=== PATIENT | female | born 1955 | race Caucasian/White ===

== ENCOUNTER 2019-05-31 13:10 | Outpatient (CLI) | payer BC, SELFPAY ==
[2019-05-31 13:22] LABS: Basophils Absolute Auto 0.1 K/mm3 (0.0-0.1); Basophils Percent Auto 0.4 % (0.2-1.2); Eosinophils Absolute Auto 0.8 K/mm3 (0-0.3); Hematocrit 41.6 % (37.0-47.0); Hemoglobin 13.8 g/dL (12.0-15.0); Immature Granulocyte Absolute 0.12 K/mm3 (0.00-0.031); Immature Granulocyte Percent A 0.6 % (0-0.5); Lymphocytes Absolute Auto 3.25 K/mm3 (0.9-3.2); Mean Corpuscular HGB Conc 33.2 g/dl (32-36); Mean Corpuscular Hemoglobin 32.1 pg (26-34); Mean Corpuscular Volume 96.7 fl (80-100); Mean Platelet Volume 10.3 fl (7.4-10.4); Monocytes Percent Auto 5.4 % (2.6-8.5); Neutrophils Absolute Auto 13.9 K/mm3 (1.3-6.7); Neutrophils Percent Auto 72.6 % (45.5-73.1); Platelet Count Result 444 k/mm3 (150-375); Red Cell Distribution Width 13.1 % (11.5-14.5); White Blood Count 19.2 K/mm3 (4.5-10.0)
[2019-05-31 16:47] LABS: Alanine Aminotransferase 14 U/L (4-35); Albumin Level 3.6 g/dL (3.5-5.1); Alkaline Phosphatase 95 U/L (38-126); Aspartate Amino Transferase 19 U/L (14-36); Bilirubin,Total 0.3 mg/dL (0.2-1.3); Blood Urea Nitrogen 22 mg/dL (7-17); Calcium 9.6 mg/dL (8.4-10.2); Carbon Dioxide 23 mmol/L (22-30); Chloride 101 mmol/L (98-107); Estimated Glomerular Filt Rate > 60; Glucose 110 mg/dL (65-105); Potassium 4.1 mmol/L (3.4-5.0); Sodium 135 mmol/L (137-145)
== END 2019-05-31 13:11 | disposition home or self-care (01) ==
LOC: ANHLAB 13:13
PROVIDERS: PCP Internal Medicine; Visit Provider Internal Medicine Hematology & Oncology
DX: D72.829 Elevated white blood cell count, unspecified (principal)
CPT/HCPCS: 36415; 80053; 85025

== ENCOUNTER 2019-09-12 12:07 | Outpatient (CLI) | payer BC, SELFPAY ==
[2019-09-12 12:20] LABS: Basophils Absolute Auto 0.1 K/mm3 (0.0-0.1); Basophils Percent Auto 0.8 % (0.2-1.2); Eosinophils Absolute Auto 0.5 K/mm3 (0-0.3); Eosinophils Percent Auto 3.1 % (0-4.4); Hematocrit 43.6 % (37.0-47.0); Hemoglobin 14.2 g/dL (12.0-15.0); Immature Granulocyte Absolute 0.08 K/mm3 (0.00-0.031); Immature Granulocyte Percent A 0.5 % (0-0.5); Lymphocytes Absolute Auto 3.44 K/mm3 (0.9-3.2); Lymphocytes Percent Auto 22.8 % (18.3-44.2); Mean Corpuscular HGB Conc 32.6 g/dl (32-36); Mean Corpuscular Hemoglobin 32.2 pg (26-34); Mean Corpuscular Volume 98.9 fl (80-100); Mean Platelet Volume 10.4 fl (7.4-10.4); Monocytes Absolute Auto 1.1 K/mm3 (0.1-0.6); Neutrophils Absolute Auto 9.9 K/mm3 (1.3-6.7); Neutrophils Percent Auto 65.8 % (45.5-73.1); Platelet Count Result 453 k/mm3 (150-375); Red Blood Count 4.41 M/mm3 (4.2-5.4); Red Cell Distribution Width 12.4 % (11.5-14.5); White Blood Count 15.1 K/mm3 (4.5-10.0)
[2019-09-12 12:23] LABS: Blood Urea Nitrogen 13 mg/dL (8-26); Carbon Dioxide 22 mmol/L (22-30); Chloride 102 mmol/L (98-109); Estimated Glomerular Filt Rate > 60; Glucose 126 mg/dL (70-105); Potassium 3.4 mmol/L (3.5-4.9); Sodium 138 mmol/L (138-146)
== END 2019-09-12 12:08 | disposition home or self-care (01) ==
LOC: ANHLAB 12:10
PROVIDERS: PCP Internal Medicine; Visit Provider Internal Medicine Hematology & Oncology
DX: D72.829 Elevated white blood cell count, unspecified (principal)
CPT/HCPCS: 36415; 80048; 85025

== ENCOUNTER 2020-01-27 10:33 | Outpatient (CLI) | payer BC, SELFPAY ==
--- NOTE | ~2020-01-27 | CT_ITS ---
EXAMINATION: CT brain wo con DATE: 01/27/2020 11:34 INDICATION: Migraine headache. TECHNIQUE: Computed tomography (CT) of the head was performed without intravenous contrast. The mA wa s adjusted according to patient size. Iterative reconstruction technique was employed. The dose-lengt h product was 529.67 mGy-cm. COMPARISON: Head CT/22/03, brain MRI 07/25/2011 FINDINGS: There is no intracranial hemorrhage, acute infarction, or abnormal intracranial mass lesion . The ventricles are normal in size. There is cavum septum callosum and vergae. The paranasal sinuses are clear. The mastoid air cells are normal. 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 IMPRESSION: 1. Normal brain. Reviewed, dictated and finalized at location A. IMPRESSION: 1. Normal brain.
== END 2020-01-27 10:34 | disposition home or self-care (01) ==
PROVIDERS: PCP Physician Assistant; Visit Provider Physician Assistant
DX: G43.909 Migraine, unspecified, not intractable, without status migrainosus (principal)
CPT/HCPCS: 70450

== ENCOUNTER 2020-02-09 15:51 | Outpatient (CLI) | payer BC, SELFPAY ==
[2020-02-09 16:35] LABS: Hematocrit 42.8 % (37.0-47.0); Hemoglobin 14.3 g/dL (12.0-15.0); Mean Corpuscular HGB Conc 33.4 g/dl (32-36); Mean Corpuscular Hemoglobin 33.1 pg (26-34); Mean Corpuscular Volume 99.1 fl (80-100); Mean Platelet Volume 10.1 fl (7.4-10.4); Platelet Count Result 505 k/mm3 (150-375); Red Blood Count 4.32 M/mm3 (4.2-5.4); Red Cell Distribution Width 12.7 % (11.5-14.5); White Blood Count 13.6 K/mm3 (4.5-10.0)
[2020-02-09 17:00] LABS: Free T4 Free Thyroxine 1.77 ng/mL (0.78-2.19)
[2020-02-09 19:00] LABS: Vitamin D 25 Hydroxy < 12.8 ng/mL
[2020-02-09 20:24] LABS: Folic Acid 9.6 ng/mL (2.76->20)
== END 2020-02-09 15:52 | disposition home or self-care (01) ==
LOC: ANHLAB 15:53
PROVIDERS: PCP Physician Assistant; Visit Provider Physician Assistant
DX: E03.9 Hypothyroidism, unspecified (principal); D72.829 Elevated white blood cell count, unspecified; R53.83 Other fatigue; E55.9 Vitamin D deficiency, unspecified
CPT/HCPCS: 36415; 82306; 82607; 82746; 84439; 84443; 85027; 86038

== ENCOUNTER 2021-03-11 08:06 | Outpatient (CLI) | payer BC, SELFPAY ==
[2021-03-11 08:33] LABS: Hematocrit 43.8 % (37.0-47.0); Hemoglobin 14.7 g/dL (12.0-15.0); Mean Corpuscular HGB Conc 33.6 g/dl (32-36); Mean Corpuscular Hemoglobin 32.2 pg (26-34); Mean Corpuscular Volume 96.1 fl (80-100); Platelet Count Result 477 k/mm3 (150-375); Red Blood Count 4.56 M/mm3 (4.2-5.4); Red Cell Distribution Width 12.6 % (11.5-14.5)
[2021-03-11 08:45] LABS: Alanine Aminotransferase 11 U/L (4-35); Albumin Level 3.9 g/dL (3.5-5.1); Alkaline Phosphatase 104 U/L (38-126); Anion Gap 2 mmol/L (8-16); Aspartate Amino Transferase 20 U/L (14-36); Bilirubin,Total 0.4 mg/dL (0.2-1.3); Blood Urea Nitrogen 17 mg/dL (7-17); Calcium 9.6 mg/dL (8.4-10.2); Carbon Dioxide 29 mmol/L (22-30); Chloride 104 mmol/L (98-107); Cholesterol 234 mg/dL (0-200); Estimated Glomerular Filt Rate > 60; Glucose 104 mg/dL (65-110); HDL Direct 49 mg/dL; Sodium 135 mmol/L (137-145); Triglycerides 225 mg/dL (<150)
[2021-03-11 08:56] LABS: LDL Cholesterol Direct 132 mg/dL
[2021-03-11 09:52] LABS: Folic Acid 6.4 ng/mL (2.76->20); Vitamin B12 > 1000.0 pg/mL (239-931)
[2021-03-11 13:44] LABS: Free T4 Free Thyroxine 1.24 ng/mL (0.78-2.19); Vitamin D 25 Hydroxy 20.7 ng/mL
== END 2021-03-11 08:07 | disposition home or self-care (01) ==
LOC: ANHLAB 08:09
PROVIDERS: PCP Internal Medicine; Visit Provider Physician Assistant
DX: E78.00 Pure hypercholesterolemia, unspecified (principal); E55.9 Vitamin D deficiency, unspecified; E03.9 Hypothyroidism, unspecified; R53.83 Other fatigue
CPT/HCPCS: 36415; 80053; 80061; 82306; 82607; 82746; 84439; 84443; 85027

== ENCOUNTER 2021-12-05 14:39 | Outpatient (CLI) | payer BC, SELFPAY ==
[2021-12-05 15:06] LABS: Basophils Absolute Auto 0.1 K/mm3 (0.0-0.1); Basophils Percent Auto 0.7 % (0.2-1.2); Eosinophils Absolute Auto 0.3 K/mm3 (0-0.3); Eosinophils Percent Auto 2.2 % (0-4.4); Hematocrit 45.1 % (37.0-47.0); Hemoglobin 14.7 g/dL (12.0-15.0); Immature Granulocyte Absolute 0.08 K/mm3 (0.00-0.031); Immature Granulocyte Percent A 0.5 % (0-0.5); Lymphocytes Absolute Auto 3.47 K/mm3 (0.9-3.2); Lymphocytes Percent Auto 23.4 % (18.3-44.2); Mean Corpuscular HGB Conc 32.6 g/dl (32-36); Mean Corpuscular Hemoglobin 31.4 pg (26-34); Mean Corpuscular Volume 96.4 fl (80-100); Mean Platelet Volume 10.4 fl (7.4-10.4); Monocytes Percent Auto 6.9 % (2.6-8.5); Neutrophils Absolute Auto 9.8 K/mm3 (1.3-6.7); Neutrophils Percent Auto 66.3 % (45.5-73.1); Platelet Count Result 461 k/mm3 (150-375); Red Blood Count 4.68 M/mm3 (4.2-5.4); Red Cell Distribution Width 13.1 % (11.5-14.5); White Blood Count 14.8 K/mm3 (4.5-10.0)
[2021-12-05 15:15] LABS: CRP < 0.5 mg/dL (<1.0)
[2021-12-05 15:29] LABS: Erythrocyte Sedimentation Rate 6 mm/hr (0-20)
[2021-12-13 16:17] LABS: CALR Exon 9 Mutation Not Detected (Not Detected); CSF3R Exon 14/17 Mutation Not Detected (Not Detected); JAK2 Exon 12 Mutation Not Detected (Not Detected); JAK2 V617F Mutation Not Detected (Not Detected); MPL Exon 10 Mutation Not Detected (Not Detected)
== END 2021-12-05 14:40 | disposition home or self-care (01) ==
LOC: ANHLAB 14:42
PROVIDERS: PCP Nurse Practitioner Adult Health; Visit Provider Internal Medicine Hematology & Oncology
DX: D75.838 Other thrombocytosis (principal)
CPT/HCPCS: 36415; 81219; 81270; 81402; 81403; 81479; 85025; 85652; 86140

== ENCOUNTER 2022-04-22 12:05 | Outpatient (CLI) | payer BC, SELFPAY ==
[2022-04-22 12:33] LABS: Basophils Absolute Auto 0.1 K/mm3 (0.0-0.1); Basophils Percent Auto 0.9 % (0.2-1.2); Eosinophils Absolute Auto 0.5 K/mm3 (0-0.3); Eosinophils Percent Auto 3.4 % (0-4.4); Hematocrit 45.3 % (37.0-47.0); Hemoglobin 14.7 g/dL (12.0-15.0); Immature Granulocyte Absolute 0.12 K/mm3 (0.00-0.031); Immature Granulocyte Percent A 0.9 % (0-0.5); Lymphocytes Absolute Auto 3.57 K/mm3 (0.9-3.2); Lymphocytes Percent Auto 26.1 % (18.3-44.2); Mean Corpuscular HGB Conc 32.5 g/dl (32-36); Mean Corpuscular Hemoglobin 31.7 pg (26-34); Mean Corpuscular Volume 97.8 fl (80-100); Mean Platelet Volume 10.3 fl (7.4-10.4); Monocytes Absolute Auto 1.2 K/mm3 (0.1-0.6); Monocytes Percent Auto 8.5 % (2.6-8.5); Neutrophils Absolute Auto 8.3 K/mm3 (1.3-6.7); Neutrophils Percent Auto 60.2 % (45.5-73.1); Platelet Count Result 484 k/mm3 (150-375); Red Blood Count 4.63 M/mm3 (4.2-5.4); White Blood Count 13.7 K/mm3 (4.5-10.0)
[2022-04-22 12:38] LABS: Blood Urea Nitrogen 15 mg/dL (8-26); Carbon Dioxide 30 mmol/L (22-30); Chloride 103 mmol/L (98-109); Estimated Glomerular Filt Rate > 60; Glucose 100 mg/dL (70-105); Ionized Calcium (POC) 1.21 mmol/L (1.11-1.31); Potassium 4.1 mmol/L (3.5-4.9); Sodium 140 mmol/L (138-146)
== END 2022-04-22 12:06 | disposition home or self-care (01) ==
LOC: ANHLAB 12:07
PROVIDERS: PCP Emergency Medicine; Visit Provider Internal Medicine Hematology & Oncology
DX: D75.838 Other thrombocytosis (principal)
CPT/HCPCS: 36415; 80047; 85025

== ENCOUNTER 2022-07-03 14:25 | Outpatient (CLI) | payer MEDICARE, BC, SELFPAY ==
[2022-07-03 19:04] LABS: Free T4 Free Thyroxine 1.92 ng/mL (0.78-2.19); Vitamin D 25 Hydroxy 37.8 ng/mL
== END 2022-07-03 14:26 | disposition home or self-care (01) ==
LOC: ANHGOSHLAB 14:26
PROVIDERS: PCP Emergency Medicine; Visit Provider Emergency Medicine
DX: E03.9 Hypothyroidism, unspecified (principal); E55.9 Vitamin D deficiency, unspecified
CPT/HCPCS: 36415; 82306; 84439; 84443

== ENCOUNTER 2022-09-29 19:27 | Outpatient (NON) | payer BC, SELFPAY | END 2022-09-29 19:28 | disposition home or self-care (01) | PROVIDERS: PCP Emergency Medicine; Visit Provider Nurse Practitioner Family | DX: R39.9 Unspecified symptoms and signs involving the genitourinary system (principal) | CPT/HCPCS: 87086; 87088 ==

== ENCOUNTER 2022-09-30 08:58 | Outpatient (CLI) | payer BC, SELFPAY ==
[2022-09-30 17:01] LABS: Basophils Absolute Auto 0.1 K/mm3 (0.0-0.1); Basophils Percent Auto 0.9 % (0.2-1.2); Eosinophils Absolute Auto 0.5 K/mm3 (0-0.3); Eosinophils Percent Auto 3.7 % (0-4.4); Immature Granulocyte Percent A 0.7 % (0-0.5); Lymphocytes Absolute Auto 2.73 K/mm3 (0.9-3.2); Lymphocytes Percent Auto 20.3 % (18.3-44.2); Mean Corpuscular HGB Conc 31.8 g/dl (32-36); Mean Corpuscular Hemoglobin 31.5 pg (26-34); Mean Corpuscular Volume 98.9 fl (80-100); Mean Platelet Volume 10.4 fl (7.4-10.4); Monocytes Absolute Auto 1.2 K/mm3 (0.1-0.6); Monocytes Percent Auto 8.8 % (2.6-8.5); Neutrophils Absolute Auto 8.8 K/mm3 (1.3-6.7); Neutrophils Percent Auto 65.6 % (45.5-73.1); Platelet Count Result 525 k/mm3 (150-375); Red Blood Count 4.45 M/mm3 (4.2-5.4); Red Cell Distribution Width 12.5 % (11.5-14.5); White Blood Count 13.4 K/mm3 (4.5-10.0)
[2022-09-30 18:50] LABS: Alanine Aminotransferase 15 U/L (6-35); Albumin Level 3.5 g/dL (3.5-5.1); Alkaline Phosphatase 114 U/L (38-126); Amylase 55 U/L (30-110); Anion Gap 7 mmol/L (8-16); Aspartate Amino Transferase 24 U/L (14-36); Bilirubin,Total 0.3 mg/dL (0.2-1.3); Blood Urea Nitrogen 12 mg/dL (7-17); Calcium 9.1 mg/dL (8.4-10.2); Carbon Dioxide 28 mmol/L (22-30); Chloride 102 mmol/L (98-107); Estimated Glomerular Filt Rate > 60; Glucose 88 mg/dL (65-110); Lipase 78 U/L (23-300); Potassium 3.6 mmol/L (3.4-5.0); Sodium 137 mmol/L (137-145)
== END 2022-09-30 08:59 | disposition home or self-care (01) ==
LOC: ANHGOSHLAB 08:59
PROVIDERS: PCP Emergency Medicine; Visit Provider Nurse Practitioner Family
DX: R10.9 Unspecified abdominal pain (principal); R19.7 Diarrhea, unspecified
CPT/HCPCS: 36415; 80053; 82150; 83690; 85025

== ENCOUNTER 2022-10-03 13:53 | Outpatient (CLI) | payer BC, SELFPAY ==
--- NOTE | ~2022-10-03 | CT_ITS ---
EXAMINATION: CT abdomen pelvis w con DATE: 10/03/2022 14:20 INDICATION: Diarrhea. Lower abdominal pain. TECHNIQUE: Computed tomography (CT) of the abdomen and pelvis was performed with 100 mL Omnipaque-350 intravenous contrast. Automated exposure control and iterative reconstruction technique were employe d. The dose-length product was 940.44 mGy-cm. COMPARISON: CT abdomen dated 10/26/2004 FINDINGS: Bilateral breast implants with peripheral capsular calcifications. Visualized mid to lower lungs are clear with no pulmonary nodules, pulmonary edema, pneumonia or pleural effusion. Heart size is normal . No pericardial effusion. Mild dilation of the common bile duct which measures up to 9 mm which is w ithin normal limits post cholecystectomy with surgical clips the gallbladder fossa. Liver is normal w ith no intrahepatic biliary ductal dilation. A few calcific lesions in the spleen consistent with old granulomatous disease. Pancreas, bilateral adrenal glands and kidneys are normal. Fluid throughout t he colon consistent with provided history of diarrhea. There is moderate diverticulosis along the rose marie cending and sigmoid colon. Mild inflammatory thickening surrounding a diverticulum along the mid sigm oid colon consistent with diverticulitis. Minimal likely reactive free fluid in the deep pelvis. No e xtraluminal gas or abscess. The appendix is not visualized. No pericecal inflammatory change to sugge st acute appendicitis. No bowel obstruction. Bladder is normal. The uterus is not identified and has likely been surgically resected. No pathologically enlarged abdominal or pelvic lymphadenopathy. Ban re lumbar spondylosis. IMPRESSION: 1. Radiographically uncomplicated sigmoid diverticulitis. Reviewed, dictated and finalized at location A.
== END 2022-10-03 13:54 | disposition home or self-care (01) ==
PROVIDERS: PCP Emergency Medicine; Visit Provider Nurse Practitioner Family
DX: R19.7 Diarrhea, unspecified (principal); R10.9 Unspecified abdominal pain; K57.32 Diverticulitis of large intestine without perforation or abscess without bleeding
CPT/HCPCS: 74177; Q9967

== ENCOUNTER 2022-10-21 13:39 | Outpatient (CLI) | payer BC, SELFPAY ==
[2022-10-21 13:49] LABS: Basophils Absolute Auto 0.1 K/mm3 (0.0-0.1); Basophils Percent Auto 0.9 % (0.2-1.2); Eosinophils Absolute Auto 0.6 K/mm3 (0-0.3); Eosinophils Percent Auto 4.6 % (0-4.4); Hematocrit 43.7 % (37.0-47.0); Immature Granulocyte Absolute 0.09 K/mm3 (0.00-0.031); Immature Granulocyte Percent A 0.7 % (0-0.5); Lymphocytes Absolute Auto 3.99 K/mm3 (0.9-3.2); Lymphocytes Percent Auto 30.5 % (18.3-44.2); Mean Corpuscular Hemoglobin 31.7 pg (26-34); Mean Corpuscular Volume 98.9 fl (80-100); Mean Platelet Volume 10.2 fl (7.4-10.4); Monocytes Absolute Auto 1.1 K/mm3 (0.1-0.6); Monocytes Percent Auto 8.1 % (2.6-8.5); Neutrophils Absolute Auto 7.2 K/mm3 (1.3-6.7); Neutrophils Percent Auto 55.2 % (45.5-73.1); Platelet Count Result 445 k/mm3 (150-375); Red Blood Count 4.42 M/mm3 (4.2-5.4); Red Cell Distribution Width 12.8 % (11.5-14.5); White Blood Count 13.1 K/mm3 (4.5-10.0)
[2022-10-21 13:55] LABS: Blood Urea Nitrogen 18 mg/dL (8-26); Carbon Dioxide 29 mmol/L (22-30); Chloride 102 mmol/L (98-109); Estimated Glomerular Filt Rate > 60; Glucose 100 mg/dL (70-105); Potassium 3.9 mmol/L (3.5-4.9); Sodium 141 mmol/L (138-146)
[2022-10-21 16:38] LABS: Alanine Aminotransferase 15 U/L (6-35); Albumin Level 3.8 g/dL (3.5-5.1); Alkaline Phosphatase 99 U/L (38-126); Anion Gap 3 mmol/L (8-16); Aspartate Amino Transferase 21 U/L (14-36); Bilirubin,Total 0.3 mg/dL (0.2-1.3); Blood Urea Nitrogen 18 mg/dL (7-17); Calcium 9.3 mg/dL (8.4-10.2); Carbon Dioxide 32 mmol/L (22-30); Chloride 104 mmol/L (98-107); Estimated Glomerular Filt Rate > 60; Glucose 101 mg/dL (65-110); Potassium 3.9 mmol/L (3.4-5.0); Sodium 139 mmol/L (137-145)
== END 2022-10-21 13:40 | disposition home or self-care (01) ==
LOC: ANHLAB 13:40
PROVIDERS: PCP Emergency Medicine; Visit Provider Internal Medicine Hematology & Oncology
DX: D75.838 Other thrombocytosis (principal)
CPT/HCPCS: 36415; 80047; 80053; 85025

== ENCOUNTER 2022-11-27 14:02 | Outpatient (CLI) | payer BC, SELFPAY ==
[2022-11-27 14:45] LABS: Hematocrit 43.3 % (37.0-47.0); Hemoglobin 13.8 g/dL (12.0-15.0); Mean Corpuscular HGB Conc 31.9 g/dl (32-36); Mean Corpuscular Hemoglobin 31.4 pg (26-34); Mean Corpuscular Volume 98.6 fl (80-100); Mean Platelet Volume 10.7 fl (7.4-10.4); Platelet Count Result 458 k/mm3 (150-375); Red Blood Count 4.39 M/mm3 (4.2-5.4); Red Cell Distribution Width 12.6 % (11.5-14.5); White Blood Count 14.8 K/mm3 (4.5-10.0)
[2022-11-27 14:55] LABS: Alanine Aminotransferase 14 U/L (6-35); Albumin Level 3.9 g/dL (3.5-5.1); Alkaline Phosphatase 87 U/L (38-126); Anion Gap 3 mmol/L (8-16); Aspartate Amino Transferase 19 U/L (14-36); Bilirubin,Total 0.3 mg/dL (0.2-1.3); Blood Urea Nitrogen 12 mg/dL (7-17); CRP < 0.5 mg/dL (<1.0); Calcium 9.1 mg/dL (8.4-10.2); Carbon Dioxide 29 mmol/L (22-30); Chloride 104 mmol/L (98-107); Estimated Glomerular Filt Rate > 60; Glucose 90 mg/dL (65-110); Potassium 3.9 mmol/L (3.4-5.0); Sodium 136 mmol/L (137-145)
[2022-11-27 15:23] LABS: Thyroid Stimulating Hormone 0.243 uIU/mL (0.465-4.680)
[2022-11-27 15:29] LABS: Erythrocyte Sedimentation Rate 12 mm/hr (0-20)
[2022-12-02 19:39] LABS: Immunoglobulin A 327 mg/dL (70-320); TTG IGA AB <1.0 U/mL (<15.0)
== END 2022-11-27 14:03 | disposition home or self-care (01) ==
LOC: ANHLAB 14:05
PROVIDERS: PCP Emergency Medicine; Visit Provider Nurse Practitioner Family
DX: R10.9 Unspecified abdominal pain (principal); R11.2 Nausea with vomiting, unspecified; R19.7 Diarrhea, unspecified
CPT/HCPCS: 36415; 80053; 82784; 84443; 85027; 85652; 86140; 86364

== ENCOUNTER 2022-12-18 01:43 | Day surgery (SDC) | payer BC, SELFPAY ==
[2022-12-03 14:52] VITALS: BMI 31.8
--- NOTE | 2022-12-17 17:09 | PM.HPGS ---
History of Present Illness History of Present Illness Consent: Risks, benefits, and alternatives have been discussed and questions answered. Patient agrees to proceed with procedure. Chief complaint: abdominal pain,Mixed irritable bowel syndrome, Narrative: Laine Chowdary is a 67 year old female with hx of constipation, vaginal and rectal prolapse with surgical repair in 2019 is referred to office per Dr. Mejia for evaluation alternating diarrhea, bloating and gas. Patient reports symptoms have been going on since 2019 after she underwent surgery for vaginal and rectal prolapse.? Since her surgery she has been passing hard stool balls followed by large amounts of diarrhea. States often she will have to sit on the toilet and either lean forward or rotate in circles to get the stool to pass.? she reports tenesmus with multiple bowel movements per day.? she reports associated lower abdominal cramping and bloating, this is constant and never seems to improve. She also reports early satiety and can only eat about a half a sandwich at a time since 2019.? this past September she developed left lower quadrant pain this prompted her to follow up in the ER.? CT scan did revealed acute sigmoid diverticulitis.? she believes the diverticulitis was caused by severe constipation that she had several days prior. she denies any previous episodes of diverticulitis.? She was treated with 2 rounds of antibiotic with improvement of her left lower quadrant pain. Since September she has been taking MiraLax daily and reports multiple soft stools per day with large amounts of bloating and gas. every time she eats she can feel the food moving through her intestines a going down until in the lower abdomen it feels heavy and uncomfortable. She has constant pain in the lower abdomen in fact. She states it is all dates to when she had her pelvic surgery 4 years ago. Review of Systems Review of Systems: All systems reviewed & are unremarkable except as noted in HPI and below PMFSH Past Medical History Medical History Essential (primary) hypertension Gas bloat syndrome Gastro-esophageal reflux disease without esophagitis Irritable bowel syndrome with constipation and diarrhea Migraine Nausea and vomiting Rectal prolapse Surgical History Surgical History H/O of rectopexy H/O right wrist surgery History of cholecystectomy History of sacrocolpopexy S/P breast implant, left S/P breast implant, right S/P hysterectomy Family History Family History Mother Family history of osteoporosis Hypertension Family history of arthritis Family history of Alzheimer's disease Family history of coronary artery disease Family history of heart disease in male family member before age 55 Family history of hypercholesterolemia Father Family history of arthritis Family history of diabetes mellitus in first degree relative Family history of lung disease Family history of emphysema Diabetes mellitus Family history of lung cancer Social History Social History Smoking packs per day: 0.25 Smoking cigarettes per day: 5.0 Years smoked: 20 Smoking pack-years: 5.00 Smoking status: Current every day smoker Tobacco type: cigarettes Second hand tobacco smoke exposure: No Smoking end date: 04/06/03 Alcohol intake: never Substance use: never Substance use type: does not use Lack of Transportation: No Lack of Food: Never True Current Housing: I Have Housing Concerned About Future Housing: No Difficulty Paying Gas/Electric Bills: No Difficulty Paying for Meds: No Currently Unemployed: No Difficulty w/ Childcare or Family Care: No Living arrangements: with family Spiritual care concerns: No Meds Home Medications and Allergies Home Medi
[2022-12-18 11:53] VITALS: BP 144/64; PULSE 84; RESP 18; TEMP 36.4; O2SAT 99
[2022-12-18] MEDS: LACTATED RINGERS 1,000 ML 150 ML IV CONT (12:07)
--- NOTE | 2022-12-18 12:17 | WPDANESEPPF ---
Anes - Initial Pre Proc Eval Procedure: Operation Date: 12/18/22 13:00 Proposed Procedures p Esophagogastroduodenoscopy & Colonoscopy - Henrry Valdez MD Date/Time: 12/18/22 12:17 Surgeon: Henrry Valdez MD Pre Op Diagnosis: abdominal pain,Mixed irritable bowel syndrome, Patient Data Age: 67 Gender: F Height: 1.63 m Weight: 79.9 kg Last Vital Signs Temp 36.4 C 12/18/22 11:53 Pulse 84 12/18/22 11:53 Resp 18 12/18/22 11:53 BP 144/64 H 12/18/22 11:53 Pulse Ox 99 12/18/22 11:53 O2 Del Method Room Air 12/18/22 11:53 Allergies Allergy/AdvReac Type Severity Reaction Status Date / Time topiramate Allergy Severe Hypertensio Verified 12/18/22 11:50 n lisinopril Allergy Unknown Angio Adema Verified 12/18/22 11:50 Home Medications Medication Instructions Recorded Confirmed Type [id number]-mhugyifbtsnzo-mstfkooj 250 1 tablet PO Q4-6H PRN Migraine 06/14/19 12/18/22 History mg-250 mg-65 mg tablet (Excedrin Headache Migraine) hydrochlorothiazide 12.5 mg tablet 12.5 mg PO DAILY #90 tabs 07/22/21 12/18/22 Rx ergocalciferol (vitamin D2) 1,250 1,250 mcg PO WEEKLY #12 caps 08/08/21 12/18/22 Rx mcg (50,000 unit) capsule metoprolol tartrate 25 mg tablet 25 mg PO DAILY #90 tabs 10/22/21 12/18/22 Rx amlodipine 5 mg tablet 5 mg PO DAILY 07/29/22 12/18/22 History galcanezumab-gnlm 120 mg/mL 120 mg subcut MONTHLY 07/29/22 12/18/22 History subcutaneous pen injector (Emgality Pen) levothyroxine 137 mcg tablet 137 mcg PO DAILY #90 tabs 11/17/22 12/18/22 Rx omeprazole 40 mg capsule,delayed 40 mg PO DAILY 1 month #30 caps 11/27/22 12/18/22 Rx release triamcinolone acetonide 55 mcg 2 spray intranasal PRN PRN Nasal 08/30/23 09/14/23 History nasal spray aerosol (Nasacort Congestion Allergy) Patient hx anesthesia problems: none Family hx anesthesia problems: none Results Review: All pre-operative results and documents have been reviewed as part of the pre-operative evaluation. [facility] Past Medical History Medical History Essential (primary) hypertension Gas bloat syndrome Gastro-esophageal reflux disease without esophagitis Irritable bowel syndrome with constipation and diarrhea Migraine Nausea and vomiting Rectal prolapse Surgical History Surgical History H/O of rectopexy H/O right wrist surgery History of cholecystectomy History of sacrocolpopexy S/P breast implant, left S/P breast implant, right S/P hysterectomy Family History Family History Mother Family history of osteoporosis Hypertension Family history of arthritis Family history of Alzheimer's disease Family history of coronary artery disease Family history of heart disease in male family member before age 55 Family history of hypercholesterolemia Father Family history of arthritis Family history of diabetes mellitus in first degree relative Family history of lung disease Family history of emphysema Diabetes mellitus Family history of lung cancer Social History Social History Smoking packs per day: 0.25 Smoking cigarettes per day: 5.0 Years smoked: 20 Smoking pack-years: 5.00 Smoking status: Current every day smoker Tobacco type: cigarettes Second hand tobacco smoke exposure: No Smoking end date: 04/06/03 Alcohol intake: never Substance use: never Substance use type: does not use Lack of Transportation: No Lack of Food: Never True Current Housing: I Have Housing Concerned About Future Housing: No Difficulty Paying Gas/Electric Bills: No Difficulty Paying for Meds: No Currently Unemployed: No Difficulty w/ Childcare or Family Care: No Living arrangements: with family Spiritual care concerns: No Anes - Eval Final PreProcedure D
--- NOTE | 2022-12-18 12:45 | SUR.OPER ---
EGD ended at 1239. Colonoscopy began at 1245.
[2022-12-18 13:00] VITALS: BP 107/67; PULSE 96; RESP 21; O2SAT 99
[2022-12-18 13:10] VITALS: BP 126/74; PULSE 89; RESP 22; O2SAT 100
[2022-12-18 13:20] VITALS: BP 133/73; PULSE 71; RESP 22; O2SAT 100
== END 2022-12-18 13:53 | disposition home or self-care (01) ==
PROVIDERS: PCP Nurse Practitioner Family; Visit Provider Internal Medicine Gastroenterology
PROC: 0DJ08ZZ Inspection of Upper Intestinal Tract, Via Natural or Artificial Opening Endoscopic (ICD-10-PCS; CPT 43235; principal; 2022-12-18 13:00)
DX: K21.9 Gastro-esophageal reflux disease without esophagitis (principal); K64.8 Other hemorrhoids; K57.30 Diverticulosis of large intestine without perforation or abscess without bleeding; K58.2 Mixed irritable bowel syndrome; I10 Essential (primary) hypertension; F17.210 Nicotine dependence, cigarettes, uncomplicated
CPT/HCPCS: 45378; 43239; 88305; J2704; J7120

== ENCOUNTER → 2022-12-26 13:34 | Outpatient (CLI) | payer BC, SELFPAY ==
--- NOTE | ~2022-12-26 | CT_ITS ---
EXAMINATION: CT abdomen pelvis w con INDICATION: Diverticulitis of the large intestine without perforation TECHNIQUE: Computed tomographic images of the abdomen and pelvis were obtained after the administrati on of 100 cc of Omnipaque 350 intravenous contrast. The dose-length product (DLP) was 917.15 mGy-cm. Automated exposure control and iterative reconstruction technique were employed. COMPARISON: 10/03/2022 FINDINGS: Minimal dependent atelectasis is present in the lung bases. The heart size is normal. Punct ate calcifications in an otherwise normal spleen likely represent healed granulomatous disease. The g allbladder is surgically absent. There is mild enlargement of the common bile duct and central intrah epatic ducts which is likely due to post cholecystectomy state. The liver, pancreas, and adrenal glan ds are normal. Hypoattenuating lesions in the right kidney, measuring up to 4 mm, are too small to ch aracterize but likely represent cysts. The left kidney is unremarkable. No pathologically enlarged ab dominal or pelvic lymph nodes are identified. No free intraperitoneal gas or evidence of bowel obstru ction. Colonic diverticulosis is noted. The previously described sigmoid diverticulitis has resolved. There is severe lumbar spondylosis. IMPRESSION: 1. Diverticulosis with interval resolution of the previously described diverticulitis. Reviewed, dictated and finalized at location B. IMPRESSION: 1. Diverticulosis with interval resolution of the previously described divertic ulitis.
[2022-12-26 13:58] LABS: Estimated Glomerular Filt Rate 56
== END ==
PROVIDERS: PCP Surgery; Visit Provider Surgery
DX: K57.32 Diverticulitis of large intestine without perforation or abscess without bleeding (principal)
CPT/HCPCS: 74177; Q9967

== ENCOUNTER 2023-06-22 13:10 | Outpatient (CLI) | payer BC, SELFPAY ==
[2023-06-22 13:27] LABS: Basophils Absolute Auto 0.1 K/mm3 (0.0-0.1); Basophils Percent Auto 0.9 % (0.2-1.2); Eosinophils Absolute Auto 0.3 K/mm3 (0-0.3); Eosinophils Percent Auto 2.1 % (0-4.4); Hematocrit 46.6 % (37.0-47.0); Hemoglobin 15.2 g/dL (12.0-15.0); Immature Granulocyte Absolute 0.16 K/mm3 (0.00-0.031); Immature Granulocyte Percent A 1.1 % (0-0.5); Lymphocytes Absolute Auto 3.64 K/mm3 (0.9-3.2); Mean Corpuscular HGB Conc 32.6 g/dl (32-36); Mean Corpuscular Hemoglobin 31.9 pg (26-34); Mean Corpuscular Volume 97.7 fl (80-100); Monocytes Absolute Auto 1.2 K/mm3 (0.1-0.6); Monocytes Percent Auto 8.6 % (2.6-8.5); Neutrophils Absolute Auto 8.6 K/mm3 (1.3-6.7); Neutrophils Percent Auto 61.3 % (45.5-73.1); Platelet Count Result 482 k/mm3 (150-375); Red Blood Count 4.77 M/mm3 (4.2-5.4); Red Cell Distribution Width 12.5 % (11.5-14.5)
[2023-06-22 13:32] LABS: Blood Urea Nitrogen 17 mg/dL (8-26); Carbon Dioxide 27 mmol/L (22-30); Chloride 102 mmol/L (98-109); Estimated Glomerular Filt Rate > 60; Glucose 95 mg/dL (70-105); Ionized Calcium (POC) 1.28 mmol/L (1.11-1.31); Sodium 139 mmol/L (138-146)
[2023-06-22 16:34] LABS: Alanine Aminotransferase 12 U/L (6-35); Alkaline Phosphatase 99 U/L (38-126); Anion Gap 5 mmol/L (8-16); Aspartate Amino Transferase 21 U/L (14-36); Bilirubin,Total 0.3 mg/dL (0.2-1.3); Blood Urea Nitrogen 17 mg/dL (7-17); Calcium 9.9 mg/dL (8.4-10.2); Carbon Dioxide 28 mmol/L (22-30); Chloride 104 mmol/L (98-107); Estimated Glomerular Filt Rate > 60; Glucose 96 mg/dL (65-110); Potassium 3.9 mmol/L (3.4-5.0); Sodium 137 mmol/L (137-145)
== END 2023-06-22 13:11 | disposition home or self-care (01) ==
LOC: ANHLAB 13:11
PROVIDERS: PCP Nurse Practitioner Family; Visit Provider Internal Medicine Hematology & Oncology
DX: D75.838 Other thrombocytosis (principal)
CPT/HCPCS: 36415; 80047; 80053; 85025

== ENCOUNTER 2023-08-11 12:31 | Emergency (ER) | payer BC, SELFPAY ==
--- NOTE | ~2023-08-11 | CT_ITS ---
EXAMINATION: CT abdomen pelvis w con DATE: 08/11/2023 13:58 INDICATION: Right upper quadrant abdominal pain. Bloating. Diarrhea. Nausea. TECHNIQUE: Computed tomography (CT) of the abdomen and pelvis was performed with 100 mL Omnipaque 350 intravenous contrast. Automated exposure control and iterative reconstruction technique were employe d. The dose-length product was 615.58 mGy-cm. COMPARISON: CT abdomen and pelvis 12/26/2022 FINDINGS: Visualized portions of the lung bases demonstrate mild atelectasis. No pleural effusion. Th e heart size is normal. No pericardial effusion. The liver is normal. There are changes of cholecyste ctomy. Calcifications in the spleen are consistent with old granulomatous disease. The pancreas, adre nal glands, and left kidney are normal. There is a 4 mm cyst in right kidney. There is diverticulosis of the colon without evidence of diverticulitis. There are no dilated loops of bowel. There is mild fat stranding adjacent to the duodenum. The appendix is not visualized. There are no pathologically e nlarged lymph nodes. There is no free intraperitoneal fluid. There is lumbar dextroscoliosis and maxwell re spondylosis. IMPRESSION: 1. Mild fat stranding adjacent to the duodenum, consistent with duodenitis. Reviewed, dictated and finalized at location A.
[2023-08-11 12:36] VITALS: BP 132/86; PULSE 104; RESP 20; TEMP 36.3; O2SAT 98
--- NOTE | 2023-08-11 13:00 | PC.NURSE ---
patient had full hysterectomy per patient statement
[2023-08-11 13:06] LABS: Basophils Absolute Auto 0.1 K/mm3 (0.0-0.1); Basophils Percent Auto 0.7 % (0.2-1.2); Eosinophils Absolute Auto 0.3 K/mm3 (0-0.3); Eosinophils Percent Auto 2.1 % (0-4.4); Hemoglobin 14.7 g/dL (12.0-15.0); Immature Granulocyte Absolute 0.07 K/mm3 (0.00-0.031); Immature Granulocyte Percent A 0.5 % (0-0.5); Lymphocytes Absolute Auto 3.64 K/mm3 (0.9-3.2); Mean Corpuscular HGB Conc 33.4 g/dl (32-36); Mean Corpuscular Hemoglobin 31.7 pg (26-34); Mean Corpuscular Volume 94.8 fl (80-100); Mean Platelet Volume 10.1 fl (7.4-10.4); Monocytes Absolute Auto 1.1 K/mm3 (0.1-0.6); Monocytes Percent Auto 8.1 % (2.6-8.5); Neutrophils Absolute Auto 7.9 K/mm3 (1.3-6.7); Neutrophils Percent Auto 60.6 % (45.5-73.1); Platelet Count Result 472 k/mm3 (150-375); Red Blood Count 4.64 M/mm3 (4.2-5.4); Red Cell Distribution Width 12.5 % (11.5-14.5)
[2023-08-11 13:15] LABS: Appearance Urine Clear (Clear); Bacteria Urine Rare /hpf; Bilirubin Urine Negative (Negative); Blood Urine Negative (Negative); Color Urine Yellow (Yellow); Glucose Urine UA Negative (Negative); Ketones Urine Negative (Negative); Leukocyte Esterase Ur Trace LEU/UL (Negative); Nitrate Urine Negative (Negative); Non Pathogenic Casts 0-2; Protein Urine Negative (Negative); RBC Urine 0-2 /hpf (0-2); Specific Grav Ur 1.013 (1.001-1.035); Squamous Epithelial Cell Urine Occasional /hpf (Few); Urobilinogen Urine 0.2 mg/dL (<2.0); WBC Urine 0-5 /hpf (0-3)
--- NOTE | 2023-08-11 13:21 | ED.ABDPAIN ---
HPI - Abdominal Pain General Chief Complaint: Abdominal Pain Stated Complaint: ABD PAIN Time Seen by Provider: 08/11/23 13:14 Source: patient Mode of arrival: ambulatory Limitations: no limitations History of Present Illness HPI narrative: This is a 68-year-old female with PMH of HTN, IBS who presents to the ED with chief complaint of acute on chronic right upper quadrant pain ongoing for the past 7 months and worse in the past 10 days. History of cholecystectomy in the past. Patient reports that she has significant right upper quadrant pain, worse with eating. Reports 30-35 lb weight loss the last several months. She reports abdominal bloating, diarrhea and nausea. Reports she had an episode of vomiting yesterday. She states most of the pain is in the right upper quadrant and epigastrium but she occasionally has left lower quadrant pain. She reports history of diverticulitis in the past but this feels different. Related Data Home Medications Medication Instructions Recorded Confirmed [id number]-zeawphodqjocg-rnqhhrxk 250 1 tablet PO Q4-6H PRN Migraine 06/14/19 01/07/23 mg-250 mg-65 mg tablet (Excedrin Headache Migraine) triamcinolone acetonide 55 mcg 2 spray intranasal PRN PRN Nasal 12/03/22 01/07/23 nasal spray aerosol (Nasacort Congestion Allergy) Allergies Allergy/AdvReac Type Severity Reaction Status Date / Time topiramate Allergy Severe Hypertensio Verified 07/10/23 13:02 n lisinopril Allergy Unknown Angio Adema Verified 07/10/23 13:02 Review of Systems Review of Systems: All systems as dictated in HPI [facility] Past Medical History Medical History Essential (primary) hypertension Gas bloat syndrome Gastro-esophageal reflux disease without esophagitis Irritable bowel syndrome with constipation and diarrhea Migraine Nausea and vomiting Rectal prolapse Surgical History Surgical History H/O of rectopexy H/O right wrist surgery History of cholecystectomy History of sacrocolpopexy S/P breast implant, left S/P breast implant, right S/P hysterectomy Family History Family History Mother Family history of osteoporosis Hypertension Family history of arthritis Family history of Alzheimer's disease Family history of coronary artery disease Family history of heart disease in male family member before age 55 Family history of hypercholesterolemia Father Family history of arthritis Family history of diabetes mellitus in first degree relative Family history of lung disease Family history of emphysema Diabetes mellitus Family history of lung cancer Social History Social History Smoking packs per day: 0.25 Smoking cigarettes per day: 5.0 Years smoked: 20 Smoking pack-years: 5.00 Smoking status: Current every day smoker Tobacco type: cigarettes Second hand tobacco smoke exposure: No Smoking end date: 04/06/03 Alcohol intake: never Substance use: never Substance use type: does not use Lack of Transportation: No Lack of Food: Never True Current Housing: I Have Housing Concerned About Future Housing: No Difficulty Paying Gas/Electric Bills: No Difficulty Paying for Meds: No Currently Unemployed: No Difficulty w/ Childcare or Family Care: No Living arrangements: with family Spiritual care concerns: No Exam Narrative: GENERAL: Well-appearing, well-nourished, and in no acute distress. HEAD: Normocephalic, atraumatic. EYES: PERRLA and EOMI. ENT: Nares clear, no rhinorrhea or epistaxis. Mucous membranes moist. Oropharynx without tonsillar hypertrophy exudate or other lesions. NECK: Supple. No adenopathy or masses. CHEST: No respiratory distress. Clear to auscultation. No wheezes rales or rhonchi HEART: Regular
[2023-08-11 13:22] LABS: Add Urine Microscopic? YES
[2023-08-11 13:23] LABS: Alanine Aminotransferase 15 U/L (6-35); Albumin Level 4.1 g/dL (3.5-5.1); Alkaline Phosphatase 87 U/L (38-126); Anion Gap 6 mmol/L (4-12); Aspartate Amino Transferase 31 U/L (14-36); Bilirubin,Total 0.5 mg/dL (0.2-1.3); Blood Urea Nitrogen 12 mg/dL (7-17); Calcium 9.7 mg/dL (8.4-10.2); Carbon Dioxide 25 mmol/L (22-30); Chloride 105 mmol/L (98-107); Estimated CRCL calculation 66 ml/min; Estimated Glomerular Filt Rate > 60; Glucose 94 mg/dL (65-110); Potassium 3.5 mmol/L (3.4-5.0); Sodium 136 mmol/L (137-145)
[2023-08-11 13:55] LABS: Lipase 113 U/L (23-300)
[2023-08-11] MEDS: ONDANSETRON INJ 4 MG/2 ML VIAL IV PUSH (14:08)
[2023-08-11] MEDS: MORPHINE SULFATE (*CRX) 4 MG/ML INJ IV PUSH (14:08)
[2023-08-11 14:09] VITALS: BP 147/63; PULSE 68; RESP 14; O2SAT 100
[2023-08-11] MEDS: PANTOPRAZOLE SODIUM IV 40 MG VIAL IV PUSH (14:48)
[2023-08-11 15:52] VITALS: BP 131/75; PULSE 71; RESP 15; TEMP 36.9; O2SAT 100
== END 2023-08-11 15:53 | disposition home or self-care (01) ==
PROVIDERS: Emergency Medicine; Emergency Provider Physician Assistant; PCP Nurse Practitioner Family
DX: R10.13 Epigastric pain (principal); I10 Essential (primary) hypertension; K21.9 Gastro-esophageal reflux disease without esophagitis; K58.2 Mixed irritable bowel syndrome; Z87.891 Personal history of nicotine dependence; Z90.49 Acquired absence of other specified parts of digestive tract; Z90.710 Acquired absence of both cervix and uterus
CPT/HCPCS: 36415; 74177; 80053; 81001; 83690; 85025; 96374; 96375; 99284; C9113; J2270; J2405; Q9967